=== PATIENT | male | born 1950 | race Caucasian/White ===

== ENCOUNTER → 2017-08-26 09:23 | Outpatient (CLI) | payer MEDICARE, SELFPAY ==
[2017-08-26 10:46] LABS: Add Manual Diff / Slide Review NO; Basophils Percent Auto 0.8 % (0-2); Eosinophils Percent Auto 1.4 % (2-4); Hematocrit 42.3 % (41-53); Lymphocytes Percent Auto 22.8 % (25-40); Mean Corpuscular HGB Conc 33.1 % (30-36); Mean Corpuscular Hemoglobin 32.5 PG (26-34); Monocytes Percent Auto 8.8 % (3-14); Neutrophils Absolute Auto 3800 /uL (3000-5900); Neutrophils Percent Auto 66.2 % (50-75); Platelet Count 249 X10^3/uL (150-400); Red Blood Cell Count 4.32 X10^6/uL (4.5-5.9); Red Cell Distribution Width 17.2 % (11.6-14.8); White Blood Cell Count 5.7 X10^3/uL (4.5-11.0)
[2017-08-26 10:59] LABS: Alanine Aminotransferase 26 IU/L (21-72); Albumin Globulin Ratio 1.5 (1.0-2.8); Alkaline Phosphatase 58 U/L (38-126); Aspartate Aminotransferase 24 IU/L (17-59); BUN Creatinine Ratio 15.6 (6-22); Bilirubin Total 0.9 mg/dL (0.2-1.3); Blood Urea Nitrogen 14 mg/dL (9-20); Carbon Dioxide 31 mmol/L (22-32); Chloride 100 mmol/L (98-107); Estimated Glomerular Filt Rate > 60.0 mL/min (>60); Globulin 2.6 g/dL (1.7-4.1); Glucose 149 mg/dL (80-110); HEMOLYSIS < 15 (0-50); Potassium 4.3 mmol/L (3.4-5.1); Sodium 139 mmol/L (137-145); Total Protein 6.6 g/dL (6.3-8.2)
[2017-08-28 15:32] LABS: Cancer (Carbohydrate) Ag 19-9 29 U/mL (< 34)
== END ==
PROVIDERS: Visit Provider Internal Medicine Hematology & Oncology
DX: C22.1 Intrahepatic bile duct carcinoma (principal); B18.2 Chronic viral hepatitis C; C78.7 Secondary malignant neoplasm of liver and intrahepatic bile duct
CPT/HCPCS: 36415; 80053; 85025; 86301

== ENCOUNTER 2022-09-22 11:23 | Emergency (ER) | payer MEDICARE, OTHER, SELFPAY ==
[2022-09-22 12:00] VITALS: BP 120/77; PULSE 82; RESP 20; TEMP 36.4; O2SAT 99; BMI 28.8
--- NOTE | 2022-09-22 12:09 | DI.RAD.S_ITS ---
PROCEDURE: XR ANKLE LT MIN 3V INDICATIONS: fall TECHNIQUE: 3 views of the ankle were acquired. COMPARISON: None. FINDINGS: Bones: No fractures or dislocations. Ankle mortise is normally aligned. No suspicious bony lesions. Soft tissues: No tibiotalar joint effusion. Achilles tendon appears normal. IMPRESSION: No acute osseous findings. Dictated by: Dennis Gardiner M.D. on 09/22/2022 at 11:33 Approved by: Dennis Gardiner M.D. on 09/22/2022 at 11:34
[2022-09-22 16:15] VITALS: BP 148/82; PULSE 79; RESP 17; O2SAT 96
--- NOTE | 2022-09-22 16:17 | ED_ITS ---
HPI - Extremity Injury (Lower) General Chief Complaint: Extremity Injury, Lower Stated Complaint: lt foot injury, per pt poss broken Time Seen by Provider: 09/22/22 16:17 Source: patient Mode of arrival: Wheelchair History of Present Illness HPI Narrative: Patient is a healthy 72-year-old male with history of cardiac problems presents today with left leg injury. He reports that yesterday he fell off a retaining wall about 3 ft high his heel landed in a hole in the top of his foot landed outside the home. He has been unable to ambulate. No heel pain no knee pain no hip pain. Having pain medially. Related Data Previous Rx's Medication Instructions Recorded hydrocodone 5 mg-acetaminophen 325 1 tab PO Q6H PRN pain #10 tabs 09/22/22 mg tablet Allergies Allergy/AdvReac Type Severity Reaction Status Date / Time No Known Drug Allergies Allergy Verified 09/22/22 12:10 Review of Systems Review of Systems ROS Unobtainable: All systems reviewed & are unremarkable except as noted in HPI and below Patient History Social History Smoking Status: Current every day smoker Smoking Status: Current every day smoker tobacco type: cigarettes alcohol intake frequency: 0-2 drinks per day Substance Use Type: does not use Exam Initial Vital Signs Initial Vital Signs: Vital Signs Temperature 97.6 F 09/22/22 12:00 Pulse Rate 82 09/22/22 12:00 Respiratory Rate 20 09/22/22 12:00 Blood Pressure 120/77 09/22/22 12:00 Pulse Oximetry 99 09/22/22 12:00 Oxygen Delivery Method Room Air 09/22/22 12:00 GENERAL: Alert pleasant 72-year-old male CARDIOVASCULAR: peripheral pulses in tact, cap refill <2 sec RESPIRATORY: No respiratory distress, speaks in full sentences without difficulty EXTREMITIES: Normal range of motion, no clubbing or edema. Neurovascularly intact Left lower extremity tender medial malleoli minimal swelling no calcaneal pain Achilles intact distal pedal pulse intact significant swelling NEUROLOGICAL: Cranial nerves II through XII grossly intact. Normal gait and speech. SKIN: Warm, dry, no petechiae, no rashes or lesions. Course Orders Ordered: ED Orders 09/22/22 12:09 XR ankle LT min 3V Stat Vital Signs Vital signs: Vital Signs - 8 hr 09/22/22 12:00 09/22/22 16:15 Temperature 97.6 F Pulse Rate 82 79 Respiratory Rate 20 17 Blood Pressure 120/77 148/82 H Pulse Oximetry 99 96 Oxygen Delivery Method Room Air Room Air MDM - Extremity Injury (Lower) Imaging Data Extremity x-ray #1: Radiologist's Impression: PROCEDURE:? XR ANKLE LT MIN 3V ? INDICATIONS:? fall ? TECHNIQUE:? 3 views of the ankle were acquired.? ? COMPARISON:? None. ? FINDINGS:? ? Bones:? No fractures or dislocations.? Ankle mortise is normally aligned.? No suspicious bony lesions.? ? Soft tissues:? No tibiotalar joint effusion.? Achilles tendon appears normal.? ? ? IMPRESSION:? No acute osseous findings. ? ? Dictated by: Dennis Gardiner M.D. on 09/22/2022 at 11:33 ? ? [facility] Narrative Medical decision making narrative: Patient is 72-year-old male who presents after a foot fall yesterday. Having ankle pain no pain no calcaneal pain. X-ray is negative. Consistent with ankle sprain. Unable to bear weight and ambulate he is given crutches and requesting medication for pain at night to sleep. Discharge Plan Departure Patient Disposition: Home Clinical Impression: Ankle sprain and strain Instructions: Ankle Sprain Activity Restrictions/Additional Instructions: *You have been diagnosed with ankle sprain *What to do: At this time elevate and ice. Use crutches. Weightbear as tolerated. If still having significant pain may require repeat imaging in 7-10 days *Continue to take medications as directed [place] 1 tablet every 6 hours if needed for severe pain *Follow up with your primary care provider in 2-3 days or call [phone] *Return to ER if you should have increasing pain swelling redness or any new, worsening or concerning symptoms Prescriptions: New hydrocodone-acetaminophen 5-325 mg tablet 1 tab PO Q6H PRN (Reason: pain) Qty: 10 0RF Stand Alone Forms: Patient Portal/API
== END 2022-09-22 16:39 | disposition home or self-care (01) ==
PROVIDERS: Emergency Provider Emergency Medicine
DX: S93.401A Sprain of unspecified ligament of right ankle, initial encounter (principal); S96.911A Strain of unspecified muscle and tendon at ankle and foot level, right foot, initial encounter; W17.89XA Other fall from one level to another, initial encounter
CPT/HCPCS: 73610; 99282; 99283